=== PATIENT | female | born 1990 | race Caucasian/White ===

== ENCOUNTER 2025-01-12 16:14 | Emergency (ER) | payer BC, SELFPAY ==
[2025-01-12 16:26] VITALS: BP 140/90; PULSE 99; TEMP 36.8; O2SAT 97; BMI 23.0
--- NOTE | 2025-01-12 16:30 | XR_ITS ---
The [place] [id number] Patient Name: ORTIZ DOYLE MRN: [id number] date: 1990 Sex: F Assigned Patient Location: ED.MAIN Current Patient Location: ED.MAIN Accession/Order Number: [id number] Exam Date: 01/12/2025 17:16 Report Date: 01/12/2025 17:18 At the request of: ISAAC AGUILAR Procedure: XR hand RT min 3V RIGHT FOREARM - 2 views, right hand 3 views CLINICAL HISTORY: pain / swelling s/p Kick boxing injury COMPARISON: None FINDINGS: Right hand: No focal soft tissue abnormality. No acute bony process is seen. Joint spaces appear maintained. No bony erosions. Right forearm: No focal soft tissue abnormality. No acute bony process. XR/XR forearm RT 2V IMPRESSION: NO ACUTE BONY PROCESS. Impression dictated by: Bennett Garrison Jr., D.O. 01/12/2025 5:18 PM Dictation Location: [place] [address] Electronically authenticated by: [id number] Y Date: 01/12/2025 17:18
--- NOTE | 2025-01-12 16:30 | XR_ITS ---
The [address] [address] Patient Name: ORTIZ DOYLE MRN: [id number] date: 1990 Sex: F Assigned Patient Location: ED.MAIN Current Patient Location: ED.MAIN Accession/Order Number: [id number] Exam Date: 01/12/2025 17:16 Report Date: 01/12/2025 17:18 At the request of: ISAAC AGUILAR Procedure: XR hand RT min 3V RIGHT FOREARM - 2 views, right hand 3 views CLINICAL HISTORY: pain / swelling s/p Kick boxing injury COMPARISON: None FINDINGS: Right hand: No focal soft tissue abnormality. No acute bony process is seen. Joint spaces appear maintained. No bony erosions. Right forearm: No focal soft tissue abnormality. No acute bony process. XR/XR hand RT min 3V IMPRESSION: NO ACUTE BONY PROCESS. Impression dictated by: Bennett Garrison Jr., D.O. 01/12/2025 5:18 PM Dictation Location: [place] [address] Electronically authenticated by: [id number] Y Date: 01/12/2025 17:18
--- NOTE | 2025-01-12 16:38 | ED.UPPEXIN1 ---
HPI HPI - Extremity Injury (Upper) General Chief Complaint: Extremity Injury, Upper Stated Complaint: HURT HER RIGHT ARM IN A BOXING WORKOUT CLASS Time Seen by Provider: 01/12/25 16:16 Source: patient Mode of arrival: walk-in History of Present Illness HPI narrative: Patient is a 34-year-old female presents to the ER for evaluation of right hand and forearm pain. Patient states she lives in [place] with her 3-year-old son. Was doing a kickboxing workout video from a [employer] kickboxing class in [place]. Patient states she was practicing on a standing bag in which she would punch and then do a forearm style chop. Patient notes after throwing a cup of punches she developed bruising and swelling to the ulnar aspect of her forearm settling in the volar side along with pain to her right ring finger which also has a ring in place. Patient notes pain with closing her hand into a fist and with motion of her wrist joint. I think I might have injured something. Patient states she was doing this for a workout class at home and denies any other injuries. She reports feeling safe in the home states she needed someone to watch her child and drove here so that her mother could be with her 3-year-old while she got care. Patient is right-hand dominant. She has no other injuries. She declines any oral pain medication but was agreeable to ice packs. Notes pain is moderate in the area of bruising rating up into her forearm. complaint: injury to: Reports right, forearm, hand and finger Other Extremity Injury: Right: fingers, hand, wrist and forearm Hand dominance: right Place: Reports home Severity: moderate Relieving factors: Reports none Exacerbating factors: Reports none Related Data Home Medications ?Medication ?Instructions ?Recorded ?Confirmed amphetamine 15.7 mg extended mg PO 01/12/25 release-disintegrating 24 hr tablet (Adzenys XR-ODT) Allergies Allergy/AdvReac Type Severity Reaction Status Date / Time No Known Drug Allergies Allergy Verified 01/12/25 16:26 Opioid HPI Opioid Management Most Recent Pain and Opioid Data: Last Pain Scale 6 Today, 16:32 Review of Systems ROS Constitutional Denies: fever or chills Eyes Denies: change in vision Ears, nose, mouth, and throat Denies: throat pain, neck pain or throat swelling Cardiovascular Denies: chest pain Musculoskeletal Reports: extremity pain (right forearm/ wrist just prior to arrival ); Denies: back pain or neck pain Integumentary/Breast Denies: rash Neurological Denies: headache Hematologic/Lymphatic Denies: easy bruising PFSH PFSH Social History Little interest or pleasure in doing things: not at all Feeling down, depressed, or hopeless: not at all Exam Narrative Exam Narrative: Nurse's notes and vital signs reviewed. Patient is not hypoxic. General: The patient appears well and in no apparent distress. Patient is resting comfortably on cart. Skin: Warm, dry, no pallor noted. No evidence of laceration. Remote scar volar forearm with prior history of fracture as a child Head: Normocephalic, atraumatic Eye: Normal conjunctiva Respiratory: Patient is in no distress Musculoskeletal: The right forearm shows some mild bruising and dependent swelling to the volar and ulnar aspect mid forearm. No elbow effusion or wrist effusion. Bruising present to ring finger pip joint with swelling. Bruising to index finger MCP joint is nontender. Wrist shows no obvious deformity. There was swelling noted mostly in forearm and ring finger. Ring present and spins. but unable to be removed over knuckle and swelling in forearm. The patient had limited ROM due to pain with wrist flexion and extension. + stiffness closing hand into a fist, but no rotation and fingers track well to scaphoid. Blas test of ring finger shows central slip intact/ Pain with flexion and extension of DIP joint of ring finger. The patient had tenderness noted diffusely to mid forearm/ wrist and ring finger. no evidence of tendon disruption. The patient had mild tenderness in the anatomical snuff box but pain was more pronounced to forearm and ring finger. The patient had no pain with axial loading of the thumb. Pulses are intact at brachial and radial 2+. There was no deficit at the elbow or shoulder. The patient has normal capillary refill to all distal digits. The patient has no evidence of cyanosis or mottling. The patient is able to flex and extend all digits without difficulty. Pt has full painless Rom of the elbow. Neurological: A&O x4, normal sensory, normal motor Psychiatric: Cooperative Constitutional Vital Signs, click to edit/add: Last Vital Signs Temp 98.3 F 01/12/25 16:26 Pulse 99 H 01/12/25 16:26 Resp 16 01/12/25 16:26 BP 140/90 01/12/25 16:26 Pulse Ox 97 01/12/25 16:26 O2 Del Method Room Air 01/12/25 16:26 Course Vital Signs Vital signs: Vital Signs Temperature 98.3 F 01/12/25 16:26 Pulse Rate 99 H 01/12/25 16:26 Respiratory Rate 16 01/12/25 16:26 Blood Pressure 140/90 01/12/25 16:26 Pulse Oximetry 97 01/12/25 16:26 Oxygen Delivery Method Room Air 01/12/25 16:26 Temperature 98.3 F 01/12/25 16:26 Pulse Rate 99 H 01/12/25 16:26 Respiratory Rate 16 01/12/25 16:26 Blood Pressure 140/90 01/12/25 16:26 Pulse Oximetry 97 01/12/25 16:26 Oxygen Delivery Method Room Air 01/12/25 16:26 MDM - Extremity Injury (Upper) MDM Narrative Medical decision making narrative: Patient has a ring on her finger which she injured during her punching maneuvers. There is swelling to the PIP joint and it cannot be removed. We initially attempted manual removal with lubrication and patient notes this became too painful and requested the ring to be cut off. We discussed the concern of a ring tourniquet given the swelling in her forearm that has not yet descended into her finger along with the swelling at the PIP joint that was unable to allow the ring to be fully removed. Patient gave verbal consent for ring removal and is aware that she could take it to a jeweler to have it restarted and resized at a later date. She did secure it in her purse with the front zipper pouch. She tolerated the ring removal procedure well. Patient does not have any other defensive wounds and her history of traveling here for childcare reasons does make sense with her injury. Patient reports feeling safe at the home. She is agreeable to ice packs which were applied and x-rays were performed of the hand and forearm given her location of symptoms. It is difficult to discern if her pain came from 1 particular blow or if this was a buildup of bruising from repetitive striking activities with her exercise routine. Pt was again offered tylenol after ring removal but declined the need for pain medication. X-rays discussed at the bedside. No evidence of fracture. Placed in cock up wrist splint. Karsten wrap was applied. Neurovascular intact status post application with good alignment. Relation of the splint, she may remove to wash her hands and shower if needed. We have recommended ice and elevation. The patient is to followup with [facility]: in 5-7 days or to return to the emergency department should any of the signs or symptoms worsen or new symptoms develop. Patient had questions answered. The patient agrees with the following Diagnosis and Treatment plan and the patient will be discharged home. Imaging Data XRAY RIGHT HAND FOREARM: Radiologist's impression: ITS Impressions Forearm X-Ray 01/12/25 16:30 IMPRESSION: NO ACUTE BONY PROCESS. Impression dictated by: Bennett Garrison Jr., D.O. 01/12/2025 5:18 PM Dictation Location: [employer] Electronically authenticated by: [id number] Y Date: 01/12/2025 17:18 Hand X-Ray 01/12/25 16:30 IMPRESSION: NO ACUTE BONY PROCESS. Impression dictated by: Bennett Garrison Jr., D.O. 01/12/2025 5:18 PM Dictation Location: [employer] Electronically authenticated by: [id number] Y Date: 01/12/2025 17:18 Discharge Plan Discharge Chief Complaint: Extremity Injury, Upper Clinical Impression: Hand pain, right, Pain in right forearm, Contusion of arm, right Patient Disposition: Home, Self-Care Time of Disposition Decision: 17:28 Condition: Good Prescriptions / Home Meds: No Action Adzenys XR-ODT 15.7 mg tablet,disinteg ER biphase 24h PO Print Language: Vietnamese Instructions: Contusion in Adults (ED), P.R.I.C.E. Treatment (ED) Additional Instructions: [facility]. PLEASE CALL MONDAY FOR FOLLOW UP IN 5-7 DAYS. [phone] RE-EVALUATION WITH POSSIBLE REPEAT IMAGING RECOMMENDED. Referrals: Physician,Non-Staff, MD [Primary Care Provider] - 1 week
== END 2025-01-12 17:41 | disposition home or self-care (01) ==
PROVIDERS: Emergency Provider Emergency Medicine
DX: M79.641 Pain in right hand (principal); M79.631 Pain in right forearm; S50.11XA Contusion of right forearm, initial encounter; Y93.B9 Activity, other involving muscle strengthening exercises
CPT/HCPCS: 73090; 73130; 99283